=== PATIENT | female | born 1970 | race Caucasian/White ===

== ENCOUNTER 2017-02-17 23:37 | Emergency (ER) | payer BC ==
--- NOTE | 2017-02-17 23:49 | Emergency Department Record ---
History of Present Illness - General Chief complaint: Female Urogenital Problem Stated complaint: VAGINAL BLEEDING Time Seen by Provider: 02/17/17 23:44 Source: Patient Mode of Arrival: Ambulatory Limitations: No limitations - History of Present Illness Initial comments: 47 yo female presents with vaginal bleeding. 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 She has been having irregular cycles since September. She is scheduled for a repeat saline infused US to help guide the definitive treatment by her OB. The original diagnosis was in January. She has had one child vaginally delivered 23 years prior. Tonight she developed increased bleeding and pain. She is not on blood thinners. No current PCP. MD Complaint: Vaginal bleeding -: Hour(s) Location: Suprapubic Radiation: Other (back) Severity: Moderate Severity scale (1-10): 5 Quality: Cramping Consistency: Constant Improves with: None Worsens with: None - Related Data Home Medications Medication Instructions Recorded Confirmed Last Taken No Home Med [NO HOME MEDS] 02/17/17 02/17/17 Unknown Allergies Allergy/AdvReac Type Severity Reaction Status Date / Time No Known Drug Allergies Allergy Verified 02/17/17 23:42 Review of Systems Constitutional: Denies: Chills, Fever Eyes: Denies: Eye discharge, Eye pain ENT: Denies: Congestion, Throat pain Respiratory: Denies: Cough Cardiovascular: Denies: Chest pain, Palpitations, Syncope Endocrine: Denies: Fatigue, Polydipsia, Polyuria Gastrointestinal: Reports: As per HPI, Abdominal pain. Denies: Diarrhea, Nausea , Vomiting Genitourinary: Reports: As per HPI, Abnormal menses. Denies: Dysuria Musculoskeletal: Denies: Arthralgia, Back pain, Myalgia, Neck pain Skin: Denies: Bruising, Change in color, Rash Neurological: Denies: Headache, Numbness, Weakness Psychiatric: Denies: Anxiety Hematological/Lymphatic: Denies: Blood Clots, Easy bleeding, Easy bruising, Swollen glands Physical Exam - General General Appearance: Alert, Oriented x3, Cooperative, No acute distress Limitations: No limitations - Head Head exam: Normal inspection - Eye Eye exam: Normal appearance. negative: Conjunctival injection, Periorbital swelling - ENT ENT exam: Normal exam Ear exam: Normal external inspection Nasal Exam: Normal inspection Mouth exam: Normal external inspection - Neck Neck exam: Normal inspection, Full ROM. negative: Tenderness - Respiratory Respiratory exam: Normal lung sounds bilaterally. negative: Respiratory distress - Cardiovascular Cardiovascular Exam: Regular rate, Normal rhythm, Normal heart sounds - GI/Abdominal GI/Abdominal exam: Soft. negative: Tenderness - Rectal Rectal exam: Deferred - exam: Enlarged uterus, Vaginal bleeding (very mild dark clotting, no reaccumulation of blood in the vault after swabbed). negative: Adnexal mass (L) , Adnexal mass (R), Adnexal tenderness (L), Adnexal tenderness (R), cervical motion tenderness, Normal bimanual exam (bulky uterus) - Extremities Extremities exam: Normal inspection - Back Back exam: Reports: Normal inspection, Full ROM. Denies: Muscle spasm, Rash noted, Tenderness - Neurological Neurological exam: Alert, Normal gait, Oriented X3 - Psychiatric Psychiatric exam: Normal affect, Normal mood - Skin Skin exam: Dry, Intact, Normal color, Warm Course - Reevaluation(s) Reevaluation #1: The vitals were reviewed No acute changes. No tachycardia. 02/17/17 23:49 Reevaluation #2: The pelvic examination is complete Minimal to no active bleeding. Small amount of dark clot Non tender examination 02/18/17 00:12 Reevaluation #3: The lab called Hgb is 4.6 The results were discussed with the patient At such a low level I do recommend transfusion. 02/18/17 00:30 Reevaluation #4: I discussed risks and benefits of blood transfusions She accepts the recommendation for transfusion I SW Dr Bowman at [facility] ED. 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
[2017-02-17] MEDS ORDERED: KETOROLAC 30 MG/ML VIAL IVP ONE (23:59)
[2017-02-18 00:22] LABS: HEMATOCRIT 19.3 % (35.0-47.0); MEAN CORPUSCULAR HGB CONC 23.8 g/dl (32-36); PLATELET COUNT 460 K/uL (130-400); RED BLOOD COUNT 3.27 M/uL (3.80-5.40); RED CELL DISTRIBUTION WIDTH 23.2 % (11.5-14.5); WHITE BLOOD COUNT W/O DIFF 7.1 K/uL (4.2-12.2)
[2017-02-18 00:29] LABS: HEMOGLOBIN 4.6 gm/dl (11.6-16.0)
[2017-02-18 00:38] LABS: INR 0.91; PARTIAL THROMBOPLASTIN TIME 23.6 SECONDS (24.5-39.1); PROTHROMBIN TIME (PATIENT) 10.3 SECONDS (9.5-12.1)
[2017-02-18 00:48] LABS: ALB/GLOB RATIO 1.2 (1.1-1.8); ALBUMIN 3.6 gm/dL (3.5-5.0); ALKALINE PHOSPHATASE 53 U/L (38-126); ALT/SGPT 25 U/L (9-52); ANION GAP 11.1 (7-16); AST/SGOT 18 U/L (14-36); BILIRUBIN,TOTAL 0.63 mg/dL (0.2-1.3); BLOOD UREA NITROGEN 9 mg/dL (7-17); CARBON DIOXIDE 24.9 mmol/L (22-30); CREATININE 0.7 mg/dL (0.52-1.04); EST GLOMERULAR FILTRATION RATE > 60 ml/min; GLUCOSE,RANDOM 107 mg/dL (70-110); TOTAL PROTEIN 6.6 gm/dL (6.3-8.2)
[2017-02-18 01:01] LABS: HYPOCHROMIA 4+
[2017-02-18 01:02] LABS: ANISOCYTOSIS 2+; MICROCYTOSIS 1+
[2017-02-18 01:45] LABS: ABO GROUP A; ANTIBODY SCREEN NEGATIVE (NEGATIVE); RH TYPE POSITIVE
[2017-02-18 01:46] LABS: IMMED. SPIN CROSSMATCH COMPATIBLE
== END 2017-02-18 03:23 | disposition short-term general hospital (02) ==
LOC: ER 23:37
DX: N93.9 Abnormal uterine and vaginal bleeding, unspecified (principal); D64.9 Anemia, unspecified; D25.9 Leiomyoma of uterus, unspecified
CPT/HCPCS: 99285 ×2; 36430; 96374; 85730; 85610; 80053; 85027; 86900; 86901; 86850; Q0111; P9016; J1885; 87210

== ENCOUNTER 2018-12-27 18:20 | Emergency (ER) | payer BC ==
--- NOTE | 2018-12-27 18:38 | Emergency Department Record ---
History of Present Illness - General Chief complaint: Extremity Problem Stated complaint: LT BIG TOE NAIL COMING OFF AND BLEEDING Time Seen by Provider: 12/27/18 18:34 Source: Patient Mode of Arrival: Ambulatory Limitations: No limitations - History of Present Illness Initial comments: 48 yo female presents with an avulsed toenail. She stubbed it earlier and noted bleeding. The toenail has been a little loose for about a year. She is not a diabetic. Immunizations up to date. MD Complaint: Other -: Hour(s) Location: Left Radiation: None Quality: Other (No pain) Improves with: Nothing Worsens with: Nothing - Related Data Home Medications Medication Instructions Recorded Confirmed Last Taken No Home Med [NO HOME MEDS] 12/27/18 12/27/18 Unknown Allergies Allergy/AdvReac Type Severity Reaction Status Date / Time No Known Drug Allergies Allergy Verified 12/27/18 18:33 Review of Systems Constitutional: Denies: Chills, Fever, Weakness Eyes: Denies: Eye discharge ENT: Denies: Congestion Respiratory: Denies: Cough, Dyspnea Cardiovascular: Denies: Chest pain Endocrine: Denies: Fatigue Gastrointestinal: Denies: Abdominal pain, Diarrhea, Nausea, Vomiting Genitourinary: Denies: Dysuria, Urgency Musculoskeletal: Reports: Other. Denies: Arthralgia, Back pain, Joint swelling, Myalgia Skin: Denies: Bruising, Change in color, Rash Neurological: Denies: Headache Psychiatric: Denies: Anxiety Hematological/Lymphatic: Denies: Easy bleeding, Easy bruising Past Medical History - SOCIAL HISTORY Smoking Status: Never smoker Drug Use: None - RESPIRATORY Hx Respiratory Disorders: No - CARDIOVASCULAR Hx Cardio Disorders: No - NEURO Hx Neuro Disorders: Yes Hx Seizures: Yes (no meds now for 20 yrs) - GI Hx GI Disorders: No - Hx Genitourinary Disorders: Yes Comment:: Fibroid tumor - ENDOCRINE Hx Endocrine Disorders: No - MUSCULOSKELETAL Hx Musculoskeletal Disorders: No - PSYCH Hx Psych Problems: No - HEMATOLOGY/ONCOLOGY Hx Hematology/Oncology Disorders: No Family Medical History Hx Diabetes: Father, Grandparents Hx Heart Disease: Grandparents Physical Exam - General General Appearance: Alert, Oriented x3, Cooperative, No acute distress Limitations: No limitations - Head Head exam: Atraumatic, Normal inspection - Eye Eye exam: Normal appearance - ENT ENT exam: Normal exam Ear exam: Normal external inspection Nasal Exam: Normal inspection Mouth exam: Normal external inspection - Neck Neck exam: Normal inspection - Cardiovascular Peripheral Pulses: 2+: Dorsalis Pedis (L) - Extremities Extremities exam: Full ROM. negative: Normal inspection, Tenderness Image of Feet: 1 - partial great toe nail avulsion, thicken nail - Neurological Neurological exam: Alert, Oriented X3 - Psychiatric Psychiatric exam: Normal affect, Normal mood - Skin Skin exam: Dry, Intact, Normal color, Warm Course - Reevaluation(s) Reevaluation #1: The toe nail is mostly avulsed off the nail bed I discussed the recommendation to remove the nail at this time Procedure Nail removal: Betadine Prep The great toe was block with a digital block 5ml of Lidocaine Plain with Sensorcaine 50/50 mix The nail was gently lifted off the nail bed and easily removed from the nail fold The area was copiously clean The nail was clean and shaped The nail was used to splint open the nail fold and it was sutured in place We discussed home care and removal of the splinting nail in 1.5-2 weeks 12/28/18 Disposition Disposition: Discharge Clinical Impression: Nail avulsion of toe Disposition: Home, Self-Care Condition: (1) Good Instructions: Nail Avulsion (ED), Nail Removal (ED) Additional Instructions: You may gently clean the area daily Return if you have any pain, swelling pus or concerns with the healing Forms: Patient Portal Access Time of Disposition: 19:23 Quality - Quality Measures Quality Measures: N/A - Blood Pressure Screening Does Patient Have Any of the Following: No Blood Pressure Classification: Pre-Hypertensive BP Reading Systolic Measurement: 123 Diastolic Measurement: 82 Screening for High Blood Pressure: < Pre-Hypertensive BP, F/U Documented > [G8950] Pre-Hypertensive Follow-up Interventions: Referral to alternative/primary care provider.
[2018-12-27] MEDS ORDERED: Diph,Pert(Acell),Tet Vac 0.5 ML SYR IM ONE (18:46)
== END 2018-12-27 19:34 | disposition home or self-care (01) ==
LOC: ER 18:20
DX: S91.202A Unspecified open wound of left great toe with damage to nail, initial encounter (principal); W22.8XXA Striking against or struck by other objects, initial encounter
CPT/HCPCS: 11730; 90715; 96372; 99283

== ENCOUNTER 2019-03-26 09:05 | Emergency (ER) | payer BC, OTHER ==
--- NOTE | 2019-03-26 09:19 | Emergency Department Record ---
History of Present Illness - General Chief Complaint: Laceration(s) Stated Complaint: LT HAND LACERATION Time Seen by Provider: 03/26/19 09:09 Source: Patient Mode of Arrival: Ambulatory Limitations: No limitations - History of Present Illness Initial Commments: The patient cut her L hand at work about 2 hours ago. She got it pinched on a rolling cart and cut the L palm. There is no numbness, weakness, or bleeding presently. Her Td is UTD. Onset/Timin -: Hour(s) Place: Work Context: Accidental Associated Symptoms: None Treatments Prior to Arrival: Bandage - Related Data Hx Tetanus Toxoid Vaccination: Yes Patient Tetanus UTD (within 5 yrs): Yes Previous Rx's Medication Instructions Recorded Cephalexin [Keflex] 500 mg PO TID #15 cap 03/26/19 Allergies Allergy/AdvReac Type Severity Reaction Status Date / Time No Known Drug Allergies Allergy Unverified 01/03/19 09:48 Travel Screening - Travel/Exposure Within Last 30 Days Have you traveled within the last 30 days?: No Review of Systems Constitutional: Denies: Chills, Fever Past Medical History - SOCIAL HISTORY Smoking Status: Never smoker - RESPIRATORY Hx Respiratory Disorders: No - CARDIOVASCULAR Hx Cardio Disorders: No - NEURO Hx Neuro Disorders: Yes Hx Seizures: Yes (no meds now for 20 yrs) - GI Hx GI Disorders: No - Hx Genitourinary Disorders: Yes Comment:: Fibroid tumor - ENDOCRINE Hx Endocrine Disorders: No - MUSCULOSKELETAL Hx Musculoskeletal Disorders: No - PSYCH Hx Psych Problems: No - HEMATOLOGY/ONCOLOGY Hx Hematology/Oncology Disorders: No Family Medical History Any Significant Family History?: Yes Hx Diabetes: Father, Grandparents Hx Heart Disease: Grandparents Physical Exam - General General Appearance: Alert, Cooperative, No acute distress - Extremities Extremities exam: Full ROM, Normal capillary refill. negative: Normal inspection (There is a 1.5 cm lac to the distal L palm over the distal L 3rd MC bone. There is no swelling, or bony tenderness. The patient has full ROM of the L hand fingers with no pain or weakness. Sensation is intact to the L fingers and the L 3rd FDP and FDS tendons are intact and have full flexion with no pain or weakness.) Course Vital Signs 03/26/19 09:07 Temperature 98.8 F Pulse Rate 65 Respiratory 20 Rate Blood Pressure 130/77 Pulse Ox 97 - Reevaluation(s) Reevaluation #1: Procedure note: The L hand lac was anesth. with 2 cc's Lido 1% with Epi. The wound was prepped with betadine and lavaged with sterile saline. The wound was then explored and was not deep thru the palm fat with no tendon exposed. The lac was then closed with 4 4.0 nylon sutures. There were no complications. 03/26/19 09:37 Disposition Disposition: Discharge Clinical Impression: Laceration of hand Qualifiers: Encounter type: initial encounter Foreign body presence: without foreign body Laterality: left Qualified Code(s): S61.412A - Laceration without foreign body of left hand, initial encounter Disposition: Home, Self-Care Condition: (2) Stable Instructions: Laceration (ED) Additional Instructions: Keep dry for 2 days then no soaking or swimming. Take the Keflex as directed and return for any signs of infection. Have the sutures removed in 10 days. Prescriptions: Cephalexin [Keflex] 500 mg PO TID #15 cap Forms: Patient Portal Access Time of Disposition: 09:40 Quality - Quality Measures Quality Measures: N/A - Blood Pressure Screening View Details: Yes Does Patient Have Any of the Following: No Blood Pressure Classification: Pre-Hypertensive BP Reading Systolic Measurement: 130 Diastolic Measurement: 77 Screening for High Blood Pressure: < Pre-Hypertensive BP, F/U Documented > [G8 950] Pre-Hypertensive Follow-up Interventions: Referral to alternative/primary care provider.
== END 2019-03-26 09:46 | disposition home or self-care (01) ==
LOC: ER 09:05
DX: S61.412A Laceration without foreign body of left hand, initial encounter (principal); W26.8XXA Contact with other sharp object(s), not elsewhere classified, initial encounter; Y93.89 Activity, other specified; Y92.218 Other school as the place of occurrence of the external cause; Y99.0 Civilian activity done for income or pay
CPT/HCPCS: 12001; 99283

== ENCOUNTER 2019-08-04 19:42 | Emergency (ER) | payer BC ==
--- NOTE | 2019-08-04 20:28 | Emergency Department Record ---
History of Present Illness - General Chief complaint: Extremity Problem Stated complaint: INJURY TO Ray SCHUMACHER ON LEFT HAND Time Seen by Provider: 08/04/19 20:22 Source: Patient Mode of Arrival: Ambulatory - History of Present Illness Initial comments: The patient sustained a crush injury to the tips of her middle and ring fingers of her non-dominant left hand earlier today. Her middle finger is purple on the tip and swollen. The fingernail did not bleed at time of injury. She states it is tense and swollen and throbs. MD Complaint: Extremity pain, Extremity swelling Onset/Timin -: Hour(s) Location: Left, Hand Severity scale (1-10): 2 Improves with: Nothing Worsens with: Nothing Associated Symptoms: Other - Related Data Home Medications Medication Instructions Recorded Confirmed Last Taken No Home Med [NO HOME MEDS] 08/04/19 08/04/19 Unknown Allergies Allergy/AdvReac Type Severity Reaction Status Date / Time No Known Drug Allergies Allergy Verified 08/04/19 19:48 Travel Screening - Travel/Exposure Within Last 30 Days Have you traveled within the last 30 days?: No - Travel/Exposure Within Last Year Have you traveled outside the [place] in the last year?: No - Additonal Travel Details Have you been exposed to anyone with a communicable illness?: No - Travel Symptoms Symptom Screening: None Review of Systems Reviewed: No additional complaints except as noted below Constitutional: Reports: As per HPI. Denies: Chills, Fever, Malaise, Night sweats, Weakness, Weight change Eyes: Reports: As per HPI. Denies: Eye discharge, Eye pain, Photophobia, Vision change ENT: Reports: As per HPI. Denies: Congestion, Dental pain, Ear pain, Epistaxis, Hearing loss, Throat pain Respiratory: Reports: As per HPI. Denies: Cough, Dyspnea, Hemoptysis, Stridor, Wheezes Cardiovascular: Reports: As per HPI. Denies: Arrhythmia, Chest pain, Dyspnea on exertion, Edema, Murmurs, Orthopnea, Palpitations, Paroxysmal nocturnal dyspnea, Rheumatic Fever, Syncope Endocrine: Reports: As per HPI. Denies: Fatigue, Heat or cold intolerance, Polydipsia, Polyuria Gastrointestinal: Reports: As per HPI. Denies: Abdominal pain, Constipation, Diarrhea, Hematemesis, Hematochezia, Melena, Nausea, Vomiting Genitourinary: Reports: As per HPI. Denies: Abnormal menses, Discharge, Dyspareunia, Dysuria, Frequency, Hematuria, Incontinence, Retention, Urgency Musculoskeletal: Reports: As per HPI. Denies: Arthralgia, Back pain, Gout, Joint swelling, Myalgia, Neck pain Skin: Reports: As per HPI. Denies: Bruising, Change in color, Change in hair/nails, Lesions, Pruritus, Rash Neurological: Reports: As per HPI. Denies: Abnormal gait, Confusion, Headache, Numbness, Paresthesias, Seizure, Tingling, Tremors, Vertigo, Weakness Psychiatric: Reports: As per HPI. Denies: Anxiety, Auditory hallucinations, Depression, Homicidal thoughts, Suicidal thoughts, Visual hallucinations Hematological/Lymphatic: Reports: As per HPI. Denies: Anemia, Blood Clots, Easy bleeding, Easy bruising, Swollen glands Past Medical History - SOCIAL HISTORY Smoking Status: Never smoker Alcohol Use: None Drug Use: None - RESPIRATORY Hx Respiratory Disorders: No - CARDIOVASCULAR Hx Cardio Disorders: No - NEURO Hx Neuro Disorders: Yes Hx Seizures: Yes (no meds now for 20 yrs) - GI Hx GI Disorders: No - Hx Genitourinary Disorders: Yes Comment:: Fibroid tumor - ENDOCRINE Hx Endocrine Disorders: No - MUSCULOSKELETAL Hx Musculoskeletal Disorders: No - PSYCH Hx Psych Problems: No - HEMATOLOGY/ONCOLOGY Hx Hematology/Oncology Disorders: No Family Medical History Any Significant Family History?: Yes Hx Diabetes: Father, Grandparents Hx Heart Disease: Grandparents Physical Exam - General General Appearance: Alert, Oriented x3, Cooperative, No acute distress - Head Head exam: Normal inspection - Eye Eye exam: Normal appearance, PERRL Pupils: Normal accommodation - ENT ENT exam: Normal exam, Mucous membranes moist, Normal external ear exam, Normal orophraynx, TM's normal bilaterally Ear exam: Normal external inspection. negative: External canal tenderness Nasal Exam: Normal inspection. negative: Discharge, Sinus tenderness Mouth exam: Normal external inspection, Tongue normal Teeth exam: Normal inspection. negative: Dental caries Throat exam: Normal inspection. negative: Tonsillar erythema, Tonsillar exudate - Neck Neck exam: Normal inspection, Full ROM. negative: Tenderness - Respiratory Respiratory exam: negative: Accessory muscle use, Chest wall tenderness, Respiratory distress - Cardiovascular Cardiovascular Exam: Regular rate, Normal rhythm - GI/Abdominal GI/Abdominal exam: Soft. negative: Tenderness - Rectal Rectal exam: Deferred - exam: Deferred - Extremities Extremities exam: Normal inspection, Full ROM, Normal capillary refill, Tenderness (Tender to tip of left middle finger with purple discoloration and swelling consistent with crush injury to fingertip. No subungual hematoma.) - Back Back exam: Reports: Normal inspection, Full ROM. Denies: Muscle spasm, Rash noted, Tenderness - Neurological Neurological exam: Alert, CN II-XII intact, Normal gait, Oriented X3, Reflexes normal. negative: Motor sensory deficit - Psychiatric Psychiatric exam: Normal affect, Normal mood - Skin Skin exam: Dry, Intact, Normal color, Warm Course Vital Signs 08/04/19 19:50 Temperature 98.7 F Pulse Rate [ 70 Left] Respiratory 16 Rate Blood Pressure 137/78 [Left] Pulse Ox 99 - Reevaluation(s) Reevaluation #1: Discussed results with patient. All questions answered. Ready for DC. 08/04/19 20:50 Medical Decision Making - Management Options MDM Management: No Additional Work-up Planned - Data Complexity MDM Data: X-Ray Ordered and/or Reviewed (Finger xrays negative per radiologist. ) Disposition Disposition: Discharge Clinical Impression: Injury, fingers Qualifiers: Encounter type: initial encounter Laterality: left Qualified Code(s): S69.92XA - Unspecified injury of left wrist, hand and finger(s), initial encounter Disposition: Home, Self-Care Condition: (1) Good Instructions: Hematoma (ED), Crush Injury (ED) Additional Instructions: Splint finger tip for comfort. Ice to finger tip intermittently. Elevate finger. Tylenol alternated with ibuprofen as directed as needed for pain. PCP follow up as needed. Quality - Quality Measures Quality Measures: N/A - Blood Pressure Screening Does Patient Have Any of the Following: No Blood Pressure Classification: Pre-Hypertensive BP Reading Systolic Measurement: 137 Diastolic Measurement: 78 Screening for High Blood Pressure: < Pre-Hypertensive BP, F/U Documented > [G8950] Pre-Hypertensive Follow-up Interventions: Follow-up with rescreen every year., Lifestyle modifications., Referral to alternative/primary care provider. Lifestyle Modification: Weight Reduction, Dietary Approaches to Stop Hypertension (DASH) Eating Plan, Dietary Sodium Restriction, Increased Physical Activity, Moderation in alcohol (ETOH) consumption
--- NOTE | 2019-08-04 20:33 | RADIOLOGY REPORT ---
EXAMINATION: Left Hand, Minimum Three Views EXAM DATE: 08/04/2019 8:19 PM TECHNIQUE: PA, lateral, and oblique INDICATION: injury COMPARISON: None ENCOUNTER: Initial FINDINGS: There is no bone or joint abnormality. IMPRESSION: Normal exam. Follow-up MRI if symptoms persist Dictated by: Alirio Thomas MD on 08/04/2019 8:30 PM. .
== END 2019-08-04 21:03 | disposition home or self-care (01) ==
LOC: ER 19:42
DX: S60.032A Contusion of left middle finger without damage to nail, initial encounter (principal); W20.8XXA Other cause of strike by thrown, projected or falling object, initial encounter
CPT/HCPCS: 99283